=== PATIENT | female | born 1955 | race Caucasian/White ===

== ENCOUNTER 2022-08-09 15:02 | Outpatient (CLI) | payer OTHER | END 2022-08-09 16:02 | disposition home or self-care (01) | LOC: CTENTCT 15:02 | PROVIDERS: ATTEND Specialist | DX: J34.2 Deviated nasal septum (principal) | CPT/HCPCS: 70486 ==

== ENCOUNTER 2022-10-09 10:54 | Outpatient (CLI) | payer OTHER ==
[2022-10-09 11:38] LABS: Hemoglobin 13.8 g/dL (12.0-15.5)
[2022-10-09 12:11] LABS: Anion Gap 11 mmol/L (10-20); BUN (Urea Nitrogen) 19 mg/dL (9.8-20.1); Calc. Creatinine Clearance 0 mL/min (70-130); Calcium 9.6 mg/dL (7.8-10.44); Carbon Dioxide 28 mmol/L (23-31); Chloride 102 mmol/L (98-107); Estimated GFR 67; Glucose 83 mg/dL (80-115); Potassium 4.2 mmol/L (3.5-5.1); Sodium 137 mmol/L (136-145)
== END 2022-10-09 10:55 | disposition home or self-care (01) ==
LOC: LABBT 10:54
PROVIDERS: ATTEND Specialist
DX: Z01.818 Encounter for other preprocedural examination (principal); J34.2 Deviated nasal septum; J34.3 Hypertrophy of nasal turbinates; R09.81 Nasal congestion
CPT/HCPCS: 80048; 85014; 85018; 93005; 93010

== ENCOUNTER 2022-10-12 09:34 | Day surgery (SDC) | payer OTHER ==
[2022-10-11 11:37] VITALS: BMI 28.6
[2022-10-12] MEDS ORDERED: Oxymetazoline HCl 0.05% (30 ML BOT) ONE ×2 (10:36→12:20)
[2022-10-12] MEDS ORDERED: Midazolam HCl 2 mg/2 ml Vial ONE (11:04)
[2022-10-12] MEDS ORDERED: Lidocaine 1% (PF) 30 ML VIAL ONE (11:06)
[2022-10-12] MEDS ORDERED: fentaNYL PF 100 MCG/2 ML SYRINGE ONE (11:11)
[2022-10-12] MEDS ORDERED: ePHEDrine 50 MG/ML VIAL ONE (12:07)
[2022-10-12] MEDS ORDERED: Dexamethasone 20 MG/5 ML VIAL ONE (12:07)
[2022-10-12] MEDS ORDERED: Ondansetron PF 4 MG/2 ML Vial ONE (12:07)
[2022-10-12] MEDS ORDERED: PROPOFOL 200 MG/20 ML VIAL ONE (12:07)
== END 2022-10-12 14:25 | disposition home or self-care (01) ==
LOC: SDC 09:34
PROVIDERS: ATTEND Specialist
PROC: 09SM0ZZ Reposition Nasal Septum, Open Approach (ICD-10-PCS; principal; 2022-10-12)
PROC: 09SL8ZZ Reposition Nasal Turbinate, Via Natural or Artificial Opening Endoscopic (ICD-10-PCS; 2022-10-12)
DX: J34.2 Deviated nasal septum (principal); J34.3 Hypertrophy of nasal turbinates; G47.33 Obstructive sleep apnea (adult) (pediatric); Z79.890 Hormone replacement therapy; Z79.899 Other long term (current) drug therapy
CPT/HCPCS: J1100; J2001; J2250; J2405; J2704; J3490